=== PATIENT | male | born 1985 | race Caucasian/White ===

== ENCOUNTER 2017-04-17 13:09 | Emergency (ER) | payer OTHER ==
[2017-04-17 13:24] VITALS: BP 107/62
--- NOTE | 2017-04-17 13:43 | UC ---
Dental HPI - HPI Summary HPI Summary: 32 yo male with left jaw pain x 4 days feels swollen denies tooth ache but has "bad teeth" Has had left jaw episodes since a child Has injured left jaw in tractor race no hx mandible fx unable to chew unable to open mouth wide - History of Current Complaint Chief Complaint: UCDentalProblem Stated Complaint: LEFT JAW PAIN Time Seen by Provider: 04/17/17 13:24 Hx Obtained From: Patient Onset/Duration: Gradual Onset, Lasting Days Severity: Moderate Pain Intensity: 6 Pain Scale Used: 0-10 Numeric Aggravating: Chewing Alleviating: Other (see comments) - non chew diew Related History: TMJ Dysfunction, Swelling - Allergies/Home Medications Allergies/Adverse Reactions: Allergies Allergy/AdvReac Type Severity Reaction Status Date / Time Sulfa Drugs Allergy Severe throat Verified 04/17/17 13:17 swelling Home Medications: Home Medications Ibuprofen TAB* [Motrin TAB* 600 MG] 2 tab PO ONCE PRN 04/17/17 [History Confirmed 04/17/17] PMH/Surg Hx/FS Hx/Imm Hx Previously Healthy: Yes Other History Of: Negative For: HIV, Hepatitis B, Hepatitis C, Anticoagulant Therapy - Surgical History Surgical History: Yes Surgery Procedure, Year, and Place: gallbladder - Family History Known Family History: Positive: Cardiac Disease, Hypertension, Diabetes - Social History Alcohol Use: Rare Substance Use Type: Marijuana Substance Use Comment - Amount & Last Used: smooked last week Smoking Status (MU): Heavy Every Day Tobacco Smoker Type: Cigarettes Amount Used/How Often: 1/2ppd Length of Time of Smoking/Using Tobacco: 12 YRS Have You Smoked in the Last Year: Yes Household Exposure Type: Cigarettes - Immunization History Most Recent Influenza Vaccination: Not the Season Review of Systems Constitutional: Negative Skin: Negative Eyes: Negative ENT: Other - left jaw pain Respiratory: Negative Cardiovascular: Negative Gastrointestinal: Negative Genitourinary: Negative Motor: Negative Neurovascular: Negative Musculoskeletal: Negative Neurological: Negative Psychological: Negative All Other Systems Reviewed And Are Negative: Yes Physical Exam Triage Information Reviewed: Yes Appearance: Well-Appearing, No Pain Distress, Well-Nourished Vital Signs: Initial Vital Signs Temp 98.6 F 04/17/17 13:19 Pulse 76 04/17/17 13:19 Resp 14 04/17/17 13:19 BP 107/62 04/17/17 13:19 Pulse Ox 98 06/28/17 13:19 Vital Signs Reviewed: Yes Eyes: Positive: Conjunctiva Clear ENT: Positive: Hearing grossly normal, TMs normal, Trismus, Other: - marked left tmj crepitus. Negative: Nasal congestion, Nasal drainage, Tonsillar swelling, Tonsillar exudate Dental: Positive: Other: - many carious teeth/many absent teeth/no abscess noted Neck: Positive: Supple, Nontender, No Lymphadenopathy Respiratory: Positive: Lungs clear, Normal breath sounds, No respiratory distress Cardiovascular: Positive: RRR, No Murmur Musculoskeletal: Positive: ROM Intact, No Edema Neurological: Positive: Alert, Muscle Tone Normal Psychological: Positive: Normal Response To Family, Age Appropriate Behavior Skin Exam: Normal Dental Complaint Course/Dx - Course Course Of Treatment: I suspect pts trimus is due to TMJ dysfunction but pt has such poor dentition that I will cover him with antibiotics in case he has a dental abscess - Differential Dx/Diagnosis Provider Diagnoses: Left TMJ syndrome Discharge - Discharge Plan Condition: Stable Disposition: HOME Prescriptions: HYDROcodone/ACETAMIN 5-325 MG* [[place] 5-325 TAB*] 1 tab PO Q4H PRN #12 tab MDD 6 PRN Reason: Pain Ibuprofen TAB* [Motrin TAB*] 600 mg PO Q6H PRN #40 tab PRN Reason: Pain Penicillin VK TAB 500 MG(NF) [Penicillin VK 500 mg Tab(NF)] 500 mg PO QID #28 tab Patient Education Materials: Temporomandibular Disorder (ED) Forms: *Work Release Referrals: Erich Jeong [Primary Care Provider] -
== END 2017-04-17 13:56 | disposition home or self-care (01) ==
LOC: UCCORT 13:09
DX: M26.622 Arthralgia of left temporomandibular joint (principal); F17.210 Nicotine dependence, cigarettes, uncomplicated
CPT/HCPCS: 99212; G0463

== ENCOUNTER 2017-10-10 14:34 | Emergency (ER) | payer OTHER ==
[2017-10-10 14:59] VITALS: BP 115/60
--- NOTE | 2017-10-10 15:18 | UC ---
Skin Complaint HPI - HPI Summary HPI Summary: Pt c/o bilateral feet paiun, swelling, odor and redness that is the soles of bilateral feet and toes only. Pt states that he wears steel tipped boots daily , works outside [employer] and his feet are wet daily from working outside. This c/ o of erythema, tenderness, and swelling began with cold, wet wearther. - History of Current Complaint Chief Complaint: UCSkin Time Seen by Provider: 10/10/17 14:52 Stated Complaint: FOOT PAIN Hx Obtained From: Patient Onset/Duration: Gradual Onset, Lasting Days, Still Present, Worse Since - onset Skin Exposure Onset/Duration: Weeks Ago Timing: Constant Onset Severity: Mild Current Severity: Moderate Location: Foot (Right), Foot (Left) Character: Swelling, Pain, Redness Aggravating Factor(s): Touch Alleviating Factor(s): Unknown Associated Signs & Symptoms: Positive: Tenderness - Allergy/Home Medications Allergies/Adverse Reactions: Allergies Allergy/AdvReac Type Severity Reaction Status Date / Time Sulfa Drugs Allergy Severe throat Verified 10/10/17 14:59 swelling Review of Systems Constitutional: Negative Skin: Other - erythema and swelling Eyes: Negative ENT: Negative Respiratory: Negative Cardiovascular: Negative Gastrointestinal: Negative Genitourinary: Negative Motor: Negative Neurovascular: Negative Musculoskeletal: Myalgia - bilateral plantar aspect of feet. Neurological: Negative Psychological: Negative Is Patient Immunocompromised?: No All Other Systems Reviewed And Are Negative: Yes PMH/Surg Hx/FS Hx/Imm Hx Previously Healthy: Yes Other History Of: Negative For: HIV, Hepatitis B, Hepatitis C, Anticoagulant Therapy - Surgical History Surgical History: Yes Surgery Procedure, Year, and Place: gallbladder - Family History Known Family History: Positive: Cardiac Disease, Hypertension, Diabetes - Social History Occupation: Employed Full-time Lives: With Family Alcohol Use: None Substance Use Type: Marijuana Substance Use Comment - Amount & Last Used: smoked 10/10/17 AM Smoking Status (MU): Light Every Day Tobacco Smoker Type: Cigarettes Amount Used/How Often: 1/2ppd Length of Time of Smoking/Using Tobacco: 12 YRS Have You Smoked in the Last Year: Yes Household Exposure Type: Cigarettes - Immunization History Most Recent Influenza Vaccination: Not the Season Physical Exam Triage Information Reviewed: Yes Appearance: Well-Appearing Vital Signs: Initial Vital Signs Temp 98.5 F 10/10/17 14:47 Pulse 76 10/10/17 14:47 Resp 18 10/10/17 14:47 BP 115/60 10/10/17 14:47 Eye Exam: Normal ENT Exam: Normal Dental Exam: Other - missing teeth Neck exam: Normal Respiratory Exam: Normal Cardiovascular Exam: Normal Musculoskeletal Exam: Other Musculoskeletal: Positive: Edema @ - bilateral platar aspect of feet. Neurological Exam: Normal Psychological Exam: Normal Skin Exam: Other - bilateral plantar aspec to of feet and all toes, erythema. small fissures between great toes and second toes. tinea between toe webbings. Course/Dx - Course Course Of Treatment: possible Raynauds, Possible luna bite,or vaculitis I disussed this with the pt and refered hum to his PCP for followup. Pt verbalized understanding and agreed to plan of care. - Differential Diagnoses - Skin Complaint Differential Diagnoses: Tinea - Diagnoses Provider Diagnoses: tinea pedis. RAynauds? luna bite? vasculitis? Discharge - Discharge Plan Condition: Stable Disposition: HOME Prescriptions: Fluconazole 100 MG TAB* [Diflucan 100 MG TAB*] 100 mg PO DAILY #4 tab Terbinafine HCl (Topical) [Antifungal Foot] 1 % EX DAILY #1 tube Patient Education Materials: Athlete's Foot (ED), Frostbite (ED), Raynaud Disease (ED) Forms: *Work Release Referrals: Erich Jeong [Primary Care Provider] - As Soon As Possible Additional Instructions: Please follow up with your PCP as soon as possible. Please keep your feet dry and warm everyday. We recommend that you wear wool socks and change them as if they become wet. Additionally, please soak your feet in warm, not hot, water with epsom salts. WE ahave concern that you may have Raynauds and you need further evaluation for this for definitive diagnosis.
== END 2017-10-10 15:36 | disposition home or self-care (01) ==
LOC: UCCORT 14:34
DX: B35.9 Dermatophytosis, unspecified (principal); F12.90 Cannabis use, unspecified, uncomplicated; Z72.0 Tobacco use
CPT/HCPCS: 99212; G0463

== ENCOUNTER 2017-10-22 19:39 | Emergency (ER) | payer OTHER ==
[2017-10-22 20:25] VITALS: BP 124/65
--- NOTE | 2017-10-22 20:44 | UC ---
Lower Extremity/Ankle HPI - HPI Summary HPI Summary: 32 YEAR OLD MALE PRESENTS WITH COLD ERYTHEMATOUS FEET SECONDARY TO CONTINUED EXPOSURE TO WATER/COLD - History of Current Complaint Chief Complaint: UCSkin Stated Complaint: RE-CK FOOT COMPLAINT Time Seen by Provider: 10/22/17 20:36 Hx Obtained From: Patient Onset/Duration: Sudden Onset Severity Initially: Moderate Severity Currently: Moderate Pain Scale Used: 0-10 Numeric - 7 Aggravating Factor(s): Standing, Ambulation - Allergies/Home Medications Allergies/Adverse Reactions: Allergies Allergy/AdvReac Type Severity Reaction Status Date / Time Sulfa Drugs Allergy Severe throat Verified 10/22/17 20:18 swelling PMH/Surg Hx/FS Hx/Imm Hx Previously Healthy: Yes Other History Of: Negative For: HIV, Hepatitis B, Hepatitis C, Anticoagulant Therapy - Surgical History Surgical History: Yes Surgery Procedure, Year, and Place: gallbladder - Family History Known Family History: Positive: Cardiac Disease, Hypertension, Diabetes - Social History Alcohol Use: None Substance Use Type: Marijuana Substance Use Comment - Amount & Last Used: smoked 10/10/17 AM Smoking Status (MU): Heavy Every Day Tobacco Smoker Type: Cigarettes Amount Used/How Often: 1/2ppd Length of Time of Smoking/Using Tobacco: 12 YRS Have You Smoked in the Last Year: Yes Household Exposure Type: Cigarettes - Immunization History Most Recent Influenza Vaccination: Not the Season Review of Systems Constitutional: Negative Skin: Other - COLD ERYTHEMATOUS PAINFUL FEET Eyes: Negative ENT: Negative Respiratory: Negative Cardiovascular: Negative Gastrointestinal: Negative Genitourinary: Negative Motor: Negative Neurovascular: Negative Musculoskeletal: Negative Neurological: Negative Psychological: Negative All Other Systems Reviewed And Are Negative: Yes Physical Exam Triage Information Reviewed: Yes Vital Signs: Initial Vital Signs Temp 36.9 C 10/22/17 20:19 Pulse 75 10/22/17 20:19 Resp 18 10/22/17 20:19 BP 124/65 10/22/17 20:19 Pulse Ox 100 10/22/17 20:19 Vital Signs Reviewed: Yes Eye Exam: Normal ENT Exam: Normal Dental Exam: Normal Neck exam: Normal Neck: Positive: 1 Respiratory Exam: Normal Cardiovascular Exam: Normal Abdominal Exam: Normal Musculoskeletal Exam: Normal Neurological Exam: Normal Psychological Exam: Normal Skin: Positive: Other - COLD ERYTHEMATOUS PAINFUL FEET Lower Extremity Course/Dx - Differential Dx/Diagnosis Provider Diagnoses: TRENCH FEET Discharge - Discharge Plan Condition: Stable Disposition: HOME Prescriptions: Econazole 1% CREAM (NF) [Econazole 1 % CREAM (NF)] 1 applic TOPICAL BID PRN #2 tube PRN Reason: Rash Methylprednisolone [Medrol Dosepak 4 MG*] 4 mg PO .SEE [place]OOD INSTRUCTION #21 tab Patient Education Materials: Athlete's Foot (ED) Forms: *Work Release Referrals: Erich Jeong [Primary Care Provider] - Tate Garay DPM [Doctor of Podiatric Medicine] -
== END 2017-10-22 21:02 | disposition home or self-care (01) ==
LOC: UCCORT 19:39
DX: T69.022A Immersion foot, left foot, initial encounter (principal); T69.021A Immersion foot, right foot, initial encounter; X31.XXXA Exposure to excessive natural cold, initial encounter; Z88.2 Allergy status to sulfonamides; F12.90 Cannabis use, unspecified, uncomplicated; F17.210 Nicotine dependence, cigarettes, uncomplicated
CPT/HCPCS: 99212; G0463

== ENCOUNTER 2018-05-19 11:50 | Emergency (ER) | payer MEDICAID, OTHER ==
[2018-05-19] MEDS ORDERED: Ibuprofen TAB* 400 MG PO ONE (12:21)
--- NOTE | 2018-05-19 12:22 | UC ---
Lower Extremity/Ankle HPI - HPI Summary HPI Summary: 33 y/o male presents to the urgent care c/o R ankle pain and swelling s/p rolling it while changing a tire about 1 hr ago. Pt reports he was pulling to make sure the tire was well placed when he felt and twisted his Rt ankle. Pt states pain is 6/10 and is painful to walk, but he can bear weight. Pt denies numbness or tingling sensation over the Rt foot, calf pain, SOB, chest pain, abdominal pain, N/V/D. He has not taking anything to alleviate pain. - History of Current Complaint Chief Complaint: UCLowerExtremity Stated Complaint: RIGHT ANKLE COMPLAINT Time Seen by Provider: 05/19/18 12:20 Hx Obtained From: Patient Onset/Duration: Sudden Onset, Lasting Hours - 1 hr ago, Still Present Severity Initially: Moderate Severity Currently: Moderate Pain Intensity: 7 Pain Scale Used: 0-10 Numeric Aggravating Factor(s): Standing, Ambulation Alleviating Factor(s): Rest Able to Bear Weight: Yes - Risk Factors Gout Risk Factors: Negative DVT Risk Factors: Negative Septic Arthritis Risk Factor: Negative - Allergies/Home Medications Allergies/Adverse Reactions: Allergies Allergy/AdvReac Type Severity Reaction Status Date / Time Sulfa (Sulfonamide Allergy Swelling Verified 05/19/18 12:12 Antibiotics) Of Face,Lips,& Throat PMH/Surg Hx/FS Hx/Imm Hx Previously Healthy: Yes - Pt denies PMHX Other History Of: Negative For: HIV, Hepatitis B, Hepatitis C, Anticoagulant Therapy - Surgical History Surgical History: Yes Surgery Procedure, Year, and Place: gallbladder - Family History Known Family History: Positive: Cardiac Disease, Hypertension, Diabetes - Social History Occupation: Employed Full-time Lives: With Family Alcohol Use: None Substance Use Type: Marijuana Substance Use Comment - Amount & Last Used: last 2 weeks ago Smoking Status (MU): Heavy Every Day Tobacco Smoker Type: Cigarettes Amount Used/How Often: 1/2ppd Length of Time of Smoking/Using Tobacco: 12 YRS Have You Smoked in the Last Year: Yes Household Exposure Type: Cigarettes - Immunization History Most Recent Influenza Vaccination: Not the 2015/2015 Season Review of Systems Constitutional: Negative Skin: Other - RT ankle swelling s/p injury Eyes: Negative ENT: Negative Respiratory: Negative Cardiovascular: Negative Gastrointestinal: Negative Genitourinary: Negative Motor: Negative Neurovascular: Negative Musculoskeletal: Decreased ROM - Rt ankle s/p injury, Other: - Rt ankle pain s/ p injury Neurological: Negative Psychological: Negative Is Patient Immunocompromised?: No All Other Systems Reviewed And Are Negative: Yes Physical Exam - Summary Physical Exam Summary: Vital Signs Reviewed: Yes General: well developed, well nourished male, sitting in the examining table w/ o any apparent distress Eyes: Positive: Conjunctiva Clear - PERRLA, EOMI, ENT: Positive: Normal ENT inspection, Hearing grossly normal, Pharynx normal, TMs normal Neck: Positive: Supple, Nontender, No Lymphadenopathy Respiratory: Positive: Chest non-tender, Lungs clear, Normal breath sounds, No respiratory distress Cardiovascular: Positive: RRR, No Murmur, Pulses Normal, Brisk Capillary Refill Abdomen Description: Positive: Nontender, No Organomegaly, Soft. Negative: CVA Tenderness (R), CVA Tenderness (L) Bowel Sounds: Positive: Present Musculoskeletal: - Ankle: Pt is able to bear weight and ambulate w/ limping. The R ankle is without obvious asymmetry or deformity when compared to the L ankle. Decreased ROM due to pain. Moderate swelling at the lateral malleolus, with tenderness to palpation. No ecchymosis or bruising observed. No tenderness to palpation over the medial malleolus , no swelling observed. Talar tilt test is negative for ligament laxity to valgus or varus stress. Negative anterior drawer. Peroneal nerve is intact with strong eversion and plantar flexion. Positive sensation over the Rt foot and Rt ankle, positive pulses, capillary refill intact Neurological Exam: Normal Psychological Exam: Normal Skin: warm and dry Triage Information Reviewed: Yes Vital Signs: Initial Vital Signs Temp 98.2 F 05/19/18 12:14 Pulse 79 05/19/18 12:14 Resp 14 05/19/18 12:14 BP 104/71 05/19/18 12:14 Pulse Ox 97 05/19/18 12:14 Lower Extremity Course/Dx - Course Course Of Treatment: 33 y/o male presents to the urgent care c/o R ankle pain and swelling s/p rolling it while changing a tire about 1 hr ago. Pt reports he was pulling to make sure the tire was well placed when he felt and twisted his Rt ankle. Pt states pain is 6/10 and is painful to walk, but he can bear weight. Pt denies numbness or tingling sensation over the Rt foot, calf pain, SOB, chest pain, abdominal pain, N/V/D. He has not taking anything to alleviate pain.Hx obtained. Pt w/ soft tissue swelling and tenderness to palpation on lateral Malleolus of Rt ankle and decrease ROM due to pain on examiantion. Rt ankle X-ray ordered, Impression:Positive Soft tissue swelling of lateral malleolus, no acute fracture. Pt most likely with a RT ankle Sprain. Pt immobilized with gel ankle splint to , given crutches to avoid weight bearing, Rx Ibuprofen PO to decrease swelling and pain. Pt given ibuprofen at the clinic for pain. Pt advised RICE, take Ibuprofen PO for pain and to f/u with PCP on orthopedic Dr Choudhury in 1 week if not improvement of symptoms for further treatment. Pt understood and agreed and left the clinic ambulating w/ the help of crutches. - Differential Dx/Diagnosis Differential Diagnosis/HQI/PQRI: Contusion, Fracture (Closed), Sprain, Strain, Tendonitis Provider Diagnoses: 1- RT ankle pain s/p injury. 2- Rt ankle sprain Discharge - Sign-Out/Discharge Documenting (check all that apply): Patient Departure - D/c home - Discharge Plan Condition: Stable Disposition: HOME Prescriptions: Ibuprofen TAB* [Motrin TAB* 800 MG] 800 mg PO Q6H PRN #30 tab PRN Reason: Pain Patient Education Materials: Ankle Sprain (ED) Forms: *Work Release Referrals: Erich Jeong [Primary Care Provider] - 1 Week Audrey Choudhury MD [Medical Doctor] - 1 Week Additional Instructions: 1-Please take medications as directed to alleviate pain and swelling. 2-Please apply ice, keep your ankle immobilized with the splint. Avoid weight bearing using the crutches 3- Please f/u with Orthopedic Dr Choudhury or your PCP in 1 week is not improvement of symptoms for further evaluation and treatment. Per institutional requirements, I have reviewed the chart, however, I was not consulted specifically or made aware of this patient by the above midlevel provider. I did not personally evaluate, interact with , or disposition this patie - Billing Disposition and Condition Condition: STABLE Disposition: Home
--- NOTE | 2018-05-19 12:38 | RAD ---
Indication: Right ankle pain. 3 views of the right ankle demonstrate soft tissue swelling laterally. Ankle mortise is intact. IMPRESSION: Soft tissue swelling laterally without fracture.
[2018-05-19 13:13] VITALS: BP 104/71
== END 2018-05-19 13:33 | disposition home or self-care (01) ==
LOC: UCCORT 11:50
DX: S93.401A Sprain of unspecified ligament of right ankle, initial encounter (principal); M25.571 Pain in right ankle and joints of right foot; Z88.2 Allergy status to sulfonamides; F17.210 Nicotine dependence, cigarettes, uncomplicated; X50.1XXA Overexertion from prolonged static or awkward postures, initial encounter; Y93.89 Activity, other specified; Y92.9 Unspecified place or not applicable
CPT/HCPCS: 99213; A9270-GY; G0463

== ENCOUNTER 2018-05-28 18:26 | Emergency (ER) | payer MEDICAID ==
[2018-05-28 18:43] VITALS: BP 106/80
--- NOTE | 2018-05-28 19:15 | UC ---
Lower Extremity/Ankle HPI - HPI Summary HPI Summary: Pt c/o right pain and swelling after injuring ankle on ~ 05/17/18 and then being diagnosed with right ankle sprain on 05/19/18. Pt states ankle pain was improving until he tripped and twisted ankle again one day ago. - History of Current Complaint Chief Complaint: UCLowerExtremity Stated Complaint: RECHECK RIGHT ANKLE MORE PAINFUL Time Seen by Provider: 05/28/18 18:50 Hx Obtained From: Patient Onset/Duration: Sudden Onset, Lasting Days, Still Present, Worse Since Severity Initially: Moderate Severity Currently: Severe Pain Intensity: 9 Aggravating Factor(s): Standing, Ambulation Alleviating Factor(s): Rest, Elevation, Ice Able to Bear Weight: No - Risk Factors Gout Risk Factors: Male DVT Risk Factors: Negative Septic Arthritis Risk Factor: Negative - Allergies/Home Medications Allergies/Adverse Reactions: Allergies Allergy/AdvReac Type Severity Reaction Status Date / Time Sulfa (Sulfonamide Allergy Swelling Verified 05/19/18 12:12 Antibiotics) Of Face,Lips,& Throat PMH/Surg Hx/FS Hx/Imm Hx Previously Healthy: Yes Other History Of: Negative For: HIV, Hepatitis B, Hepatitis C, Anticoagulant Therapy - Surgical History Surgical History: Yes Surgery Procedure, Year, and Place: gallbladder - Family History Known Family History: Positive: Cardiac Disease, Hypertension, Diabetes - Social History Occupation: Employed Full-time Lives: With Family Alcohol Use: None Substance Use Type: Marijuana Substance Use Comment - Amount & Last Used: last 3 weeks ago Smoking Status (MU): Heavy Every Day Tobacco Smoker Type: Cigarettes Amount Used/How Often: 1/2ppd Length of Time of Smoking/Using Tobacco: 12 YRS Have You Smoked in the Last Year: Yes Household Exposure Type: Cigarettes - Immunization History Most Recent Influenza Vaccination: Not the Season Review of Systems Constitutional: Negative Skin: Bruising Eyes: Negative ENT: Negative Respiratory: Negative Cardiovascular: Negative Gastrointestinal: Negative Genitourinary: Negative Motor: Decreased ROM Neurovascular: Negative Musculoskeletal: Arthralgia, Decreased ROM, Edema Neurological: Negative Psychological: Negative Is Patient Immunocompromised?: No All Other Systems Reviewed And Are Negative: Yes Physical Exam Triage Information Reviewed: Yes Appearance: Pain Distress Vital Signs: Initial Vital Signs Temp 98 F 05/28/18 18:33 Pulse 101 05/28/18 18:33 Resp 18 05/28/18 18:33 BP 106/80 05/28/18 18:33 Pulse Ox 99 05/28/18 18:33 Vital Signs Reviewed: Yes Eye Exam: Normal ENT Exam: Normal Dental: Positive: Gross Decay/Caries @ Neck exam: Normal Respiratory: Positive: No respiratory distress Musculoskeletal: Positive: Strength Limited @ - right ankle, ROM Limited @, Edema @, Other: - negative ma/franc[place] test Neurological Exam: Normal Psychological Exam: Normal Psychological: Positive: Age Appropriate Behavior Skin Exam: Other - bruising medial and leteral malleolus Lower Extremity Course/Dx - Differential Dx/Diagnosis Differential Diagnosis/HQI/PQRI: Fracture (Closed), Sprain, Strain Provider Diagnoses: right ankle fracture Discharge - Sign-Out/Discharge Documenting (check all that apply): Patient Departure - Discharge Plan Condition: Stable Disposition: HOME Patient Education Materials: Ankle Fracture (ED), R.I.C.E. Treatment (ED) Forms: *Work Release Referrals: Vasiliy Mancia MD [Medical Doctor] - As Soon As Possible Erich Jeong [Primary Care Provider] - If Needed - Billing Disposition and Condition Condition: STABLE Disposition: Home
--- NOTE | 2018-05-28 19:38 | RAD ---
Indication: RIGHT ankle pain following injury 2 days ago. Comparison: May 19, 2018 Technique: AP, mortise, and lateral views RIGHT ankle. Report: Reference the lateral view there is subtle cortical interruption at the posterior distal metaphysis of the tibia concerning for a nondisplaced coronally oriented fracture involving the posterior margin of the tibial plafond. Negative for fracture of the medial or lateral malleolus. Mild nonfocal soft tissue swelling. Small os peroneum accessory ossicle. IMPRESSION: #. Probable although not definitive nondisplaced coronally oriented fracture involving the posterior margin of the tibial plafond. This finding is not discretely visualized on the prior exam.
== END 2018-05-28 20:10 | disposition home or self-care (01) ==
LOC: UCCORT 18:26
DX: S82.871A Displaced pilon fracture of right tibia, initial encounter for closed fracture (principal); W18.40XA Slipping, tripping and stumbling without falling, unspecified, initial encounter; Y93.9 Activity, unspecified; Y92.9 Unspecified place or not applicable; Z88.2 Allergy status to sulfonamides; F17.210 Nicotine dependence, cigarettes, uncomplicated
CPT/HCPCS: 99213; G0463

== ENCOUNTER 2018-10-04 11:04 | Emergency (ER) | payer OTHER ==
[2018-10-04 11:34] VITALS: BP 131/80
--- NOTE | 2018-10-04 12:13 | UC ---
Dental HPI - HPI Summary HPI Summary: Dental pain off and on. Recurrance now Left post molar. NO fever or chills. No current dental care. - History of Current Complaint Chief Complaint: UCDentalProblem Stated Complaint: DENTAL COMPLAINT Time Seen by Provider: 10/04/18 11:55 Hx Obtained From: Patient Onset/Duration: Gradual Onset, Lasting Days Severity: Moderate Pain Intensity: 8 Aggravating Factor(s): Heat, Cold, Chewing Alleviating Factor(s): Nothing Related History: Previous Dental Care on Same Tooth - Allergies/Home Medications Allergies/Adverse Reactions: Allergies Allergy/AdvReac Type Severity Reaction Status Date / Time Sulfa (Sulfonamide Allergy Swelling Verified 10/04/18 11:28 Antibiotics) Of Face,Lips,& Throat Home Medications: Home Medications Ibuprofen TAB* [Advil TAB*] 1,200 mg PO ONCE PRN 10/04/18 [History Confirmed ] PMH/Surg Hx/FS Hx/Imm Hx Previously Healthy: No Other History Of: Negative For: HIV, Hepatitis B, Hepatitis C, Anticoagulant Therapy - Surgical History Surgical History: Yes Surgery Procedure, Year, and Place: gallbladder - Family History Known Family History: Positive: Cardiac Disease, Hypertension, Diabetes - Social History Alcohol Use: None Substance Use Type: Marijuana Substance Use Comment - Amount & Last Used: last 3 weeks ago Smoking Status (MU): Heavy Every Day Tobacco Smoker Type: Cigarettes Amount Used/How Often: 1/2ppd Length of Time of Smoking/Using Tobacco: 12 YRS Have You Smoked in the Last Year: Yes Household Exposure Type: Cigarettes - Immunization History Most Recent Influenza Vaccination: Not the Season Review of Systems All Other Systems Reviewed And Are Negative: Yes ENT: Positive: Other - dental pain Is Patient Immunocompromised?: No Physical Exam Triage Information Reviewed: Yes Appearance: Well-Appearing, No Pain Distress, Well-Nourished Vital Signs: Initial Vital Signs Temp 97.7 F 10/04/18 11:29 Pulse 54 10/04/18 11:29 Resp 14 10/04/18 11:29 BP 131/80 10/04/18 11:29 Pulse Ox 99 10/04/18 11:29 Eyes: Positive: Conjunctiva Clear ENT: Positive: Normal ENT inspection, Other - No facial swelling. There is left post lower molar has deep decay. No surrounding swelling. No discharge. Dental: Positive: Percussion Tenderness @, Gross Decay/Caries @, Cervical Lymphadenopathy. Negative: Abscess @, Cellulitis @ Neck: Positive: Supple, Nontender, No Lymphadenopathy Respiratory: Positive: Chest non-tender, Lungs clear, Normal breath sounds, No respiratory distress, No accessory muscle use. Negative: Respiratory distress, Decreased breath sounds Cardiovascular: Positive: No Murmur, Pulses Normal, Brisk Capillary Refill Abdomen Description: Positive: Nontender, No Organomegaly. Negative: Distended , Guarding Musculoskeletal: Positive: Strength Intact, ROM Intact, No Edema Neurological: Positive: Alert, Muscle Tone Normal. Negative: Fatigued Psychological: Positive: Age Appropriate Behavior Skin: Negative: Rashes Dental Complaint Course/Dx - Differential Dx/Diagnosis Provider Diagnosis: Dental caries Discharge - Sign-Out/Discharge Documenting (check all that apply): Patient Departure All imaging exams completed and their final reports reviewed: No Studies - Discharge Plan Condition: Good Disposition: HOME Prescriptions: Amoxicillin PO (*) [Amoxicillin 500 MG CAP*] 500 mg PO Q12H #14 cap Benzocaine [Oral Analgesic] 12 ml MM Q2H PRN #1 solution PRN Reason: Pain traMADol TAB* [Ultram*] 50 mg PO Q12H PRN #8 tab MDD 2 PRN Reason: Pain Patient Education Materials: Toothache (ED) Referrals: Erich Jeong [Primary Care Provider] - Additional Instructions: use the list of dentists that we provided you to see someone soon. - Billing Disposition and Condition Condition: GOOD Disposition: Home
[2018-10-04] MEDS ORDERED: Naproxen TAB* 250 MG PO ONE (12:14)
== END 2018-10-04 12:18 | disposition home or self-care (01) ==
LOC: UCCORT 11:04
DX: Z88.2 Allergy status to sulfonamides (principal); K02.9 Dental caries, unspecified
CPT/HCPCS: 99212; A9270-GY; G0463

== ENCOUNTER 2019-04-30 13:53 | Emergency (ER) | payer SELFPAY ==
[2019-04-30 14:15] VITALS: BP 140/75
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
== END 2019-04-30 15:20 | disposition home or self-care (01) ==
LOC: UCCORT 13:53
DX: L55.1 Sunburn of second degree (principal); F17.210 Nicotine dependence, cigarettes, uncomplicated; Z88.2 Allergy status to sulfonamides